=== PATIENT | male | born 1990 | race Caucasian/White ===

== ENCOUNTER 2016-03-14 11:18 | Emergency (ER) | payer OTHER ==
[~2016-03-14] VITALS: Ht 182.9 cm; Wt 79.5 kg
[~2016-03-14 11:18] MED LIST: NOMED
[2016-03-14 11:38] VITALS: BP 129/85; PULSE 85; O2SAT 100
--- NOTE | 2016-03-14 13:25 | ED.REPORT ---
HPI-Back Pain Under 40 Date of Service Mar 14, 2016 ED Provider: Jac Ingram PA-C Octavio is an otherwise healthy 25-year-old male who presents with chief complaint low back pain. Patient reports slipping on icy stairs and falling on his back approximately 3 days ago. Denies hitting his head or injuring his neck. Complains of moderate pain in his lumbar spine without radiation. Denies weakness, numbness/tingling in his legs. Denies bowel/bladder dysfunction, saddle anesthesia. Denies fevers, IV drug use, diabetes, recent surgery, recent infection. Secondary complaint of possible STI. Patient reports that yesterday he noticed what looked like a "zit" on his penis that he popped. He states that he has a sore and a rash now. Denies prodrome, dysuria, discharge, previous STI. Nursing Notes Stated Complaint: BACK PAIN/STD TEST Chief Complaint: Back Pain or Injury Nursing Notes Reviewed: Yes Allergies: Coded Allergies: No Known Allergies (Unverified Allergy, Unknown, 03/14/16) Miscellaneous Medications No Historical Medication (No Historical Medication) Ea General Time Seen by MD: 12:42 Chief Complaint Lumbar pain Sudden in Onset?: Yes Past Medical History Past Medical History Denies Review of Systems General: Denies fever, chills, malaise. HEENT: Denies congestion, headache, sore throat. Respiratory: Denies dyspnea, cough, shortness of breath, wheezing. Cardiovascular: Denies chest pain, palpitations. Gastrointestinal: Denies vomiting, diarrhea, abdominal pain. Genitourinary: Denies frequency, urgency, dysuria, hematuria. Otherwise as noted in HPI. Physical Exam General: Well developed, well nourished, no acute distress. Head: Atraumatic, normocephalic. Eyes: No scleral icterus or injection. No discharge. Vision grossly intact. ENT: Voice clear, hearing grossly intact. Respiratory: Regular rate and rhythm. Breath sounds present, clear to auscultation and equal bilaterally. Cardiovascular: Regular rate and rhythm, without murmur, gallop or rub. No pedal edema. Gastrointestinal: Abdomen flat and non-tender without guarding or rebound. Bowel sounds normoactive. Skin: Warm and dry. Genitourinary: Normal, circumcised penis with slight redness dorsal aspect of the glans and distal shaft. No chancres, vesicles, urethral discharge. Testicles descended, nontender bilaterally without masses. Back: Normal to inspection, no midline spinal tenderness and mild tenderness over left SI joint. Neurological: Normal gait, heel walk, toe walk. Hip flexion, knee extension, ankle dorsiflexion and plantarflexion strength 5/5 B/L. Patellar and Achilles reflexes 2+ B/L. Sensation to sharp touch intact at medial leg, dorsal foot and lateral foot B/L. negative seated straight leg raise, negative seated cross straight leg raise. Psychological: alert and oriented. Speech appropriate, linear and logical. Behavior appropriate Initial Vital Signs Vital Signs (First) Date Time Temp Pulse Resp B/P Pulse Ox O2 Delivery O2 Flow Rate FiO2 03/14/16 11:38 36.5 85 129/85 100 Room Air 03/14/16 13:48 18 Initial VS: Reviewed Re-Eval/Medical Decision Med Decision/Clinical Course In brief this is a otherwise healthy 25-year-old male who presents with chief complaint of lumbar pain started when he slipped and fell on icy stairs 3 days ago. History is reassuring regarding cauda equina syndrome, epidural abscess. Physical reveals no neuropathy or midline spinal tenderness. No indication for imaging at this time. Discharged with reassurance and [id number] analgesia instructions, return precautions. Regarding his secondary complaint of a possible STI, physical reveals only appears to be irritated skin on the dorsal aspect of his penis. No lesion to culture from. History does not suggest gonorrhea/chlamydia. Noted that he is wearing work pants without underwear. Suggested one-week trial of underwear, condoms during sex, and observation. Advised follow-up with Public health or [facility] should symptoms change or not resolve. Discharge & Departure Impression: Primary Impression: Low back pain Chronicity: acute Back pain laterality: left Sciatica presence: without sciatica Qualified Code: M54.5 - Low back pain Disposition: Home All VS Reviewed: Yes Condition: Stable Patient Instructions: Acute Low Back Pain (ED) Additional Instructions: Evaluation for low back pain in the ED today. History and physical are extremely reassuring that this is not a dangerous condition such as swelling of the spinal cord, infection and spinal cord, fracture to the spine. There is no indication of neurological damage I believe you are stable and safe for discharge to home. Rest and ice will speed your recovery, but avoid total bed rest. Reasonable activity as tolerated is the best. The pain is best treated with 400 mg of ibuprofen (Advil, Motrin) every 6 hours, or 1000 mg of acetaminophen (Tylenol) every 6 hours. These drugs can be taken at the same time for more severe pain. Most of all be patient: 70-90% of people with injuries presenting like yours will improve significantly within 7 weeks, even without treatment. Return the emergency department for new or worsening symptoms such as loss of bowel/bladder control, numbness between your legs, new weakness/numbness or high fever. Regarding your secondary complaint of a possible STD, history and physical are more suggestive simple skin irritation. There is no vesicle to take a sample from to test for herpes, and no symptoms suggestive of gonorrhea or chlamydia. My suggestion is to get some comfortable underwear, use condoms during sex, and monitor the condition for a week or so. It does not resolve or somehow changes it would be best to go to public health or [facility] with your partner to be tested. Referrals: Tor De Guzman MD (PCP) EDSupervising Provider for APC: Ashutosh Coy Seth PA-C Mar 14, 2016 13:25
[2016-03-14 13:48] VITALS: BP 132/90; PULSE 89; RESP 18; O2SAT 98
[2016-03-14 13:53] VITALS: BP 132/90; PULSE 89; RESP 18
== END 2016-03-14 13:54 | disposition home or self-care (01) ==
LOC: SED 11:18
DX: M54.5 Low back pain (principal); W00.1XXA Fall from stairs and steps due to ice and snow, initial encounter; Y93.9 Activity, unspecified; Y92.9 Unspecified place or not applicable; Y99.8 Other external cause status